=== PATIENT | female | born 1975 | race Caucasian/White ===

== ENCOUNTER 2022-02-14 09:18 | Outpatient (CLI) | payer OTHER, SELFPAY ==
--- NOTE | ~2022-02-14 | MM_ITS ---
EXAMINATION: MM scrn [place] implant BI w dany HISTORY: Screening mammogram TECHNIQUE: Craniocaudal and mediolateral oblique 3-D tomosynthesis images with implant displacement a nd synthetic 2-D images were generated. Craniocaudal and mediolateral oblique views of the breasts wi thout implant displacement were obtained using full field digital mammography. CAD analysis was submi tted and interpreted. COMPARISON: No prior mammogram is available for comparison at this institution. BREAST PARENCHYMAL COMPOSITION: The breasts are heterogeneously dense, which may obscure small masses . FINDINGS: Status post bilateral augmentation mammoplasty. Approximately 6.2 x 7.3 mm circumscribed mass is noted anteriorly in the outer mid left breast. Approximately 5 x 7.3 mm circumscribed mass is noted in the outer mid right breast. Additional masses may be obscured by the heterogeneously dense stroma. Bilateral diagnostic mammograp hy and bilateral breast ultrasound examination are recommended. IMPRESSION: 1. Bilateral breast masses 2. Bilateral diagnostic mammography and bilateral breast ultrasound examination are recommended BI-RADS Category 0: Incomplete: Needs additional imaging evaluation. Reviewed, dictated and finalized at location A.
== END 2022-02-14 09:19 | disposition home or self-care (01) ==
PROVIDERS: PCP Family Medicine; Visit Provider Family Medicine
DX: Z12.31 Encounter for screening mammogram for malignant neoplasm of breast (principal); R92.8 Other abnormal and inconclusive findings on diagnostic imaging of breast
CPT/HCPCS: 77063; 77067

== ENCOUNTER 2022-03-07 11:55 | Outpatient (CLI) | payer OTHER, SELFPAY ==
--- NOTE | ~2022-03-07 | MMUS_ITS ---
EXAMINATION: MM diag [place] implant BI w dany, US breast BI limited HISTORY: Bilateral breast masses on screening mammogram TECHNIQUE: Craniocaudal, mediolateral, and mediolateral oblique 3-D tomosynthesis images with implant displacement of the breasts were performed and synthetic 2-D images were generated. CAD analysis w as submitted and interpreted. High resolution limited bilateral breast ultrasound was performed. COMPARISON: 02/14/2022, 12/06/2020, 09/03/2019 FINDINGS: MAMMOGRAPHIC FINDINGS: Left breast: There are obscured low density masses in the upper outer quadrant of the breast, the lar gest of which measures 8 mm in the middle third of the breast at the 2:00 location 4 cm from the nipp le. With spot compression, this appears decreased in size when compared to prior examinations. Right breast: There is a questionable obscured 5 mm mass in the middle third of the slightly outer br east. No suspicious calcification or architectural distortion are identified. ULTRASOUND: Left breast: There are multiple cysts in the upper outer quadrant of the left breast, the largest of which measures 8 mm at the 2:00 location 4 cm from the nipple. Right breast: Cysts measuring 8 mm and 10 mm are present in the upper outer quadrant of the right rebel ast. IMPRESSION: 1. Bilateral breast cysts corresponding to the mammographic findings in question. No mammographic or sonographic evidence of malignancy. 2. Recommend routine screening mammography in one year. BI-RADS Category 2: Benign finding(s). Reviewed, dictated and finalized at location A. IMPRESSION: 1. Bilateral breast [facility] No mammographic or sonographic evidence of malignancy. 2. Recommend routine screening mammography in one year. BI-RADS Category 2: Benign finding(s). IMPRESSION: 1. Bilateral breast cysts corresponding to the mammographic findings in questio n. No mammographic or sonographic evidence of malignancy. 2. Recommend routine screening mammography in one year. BI-RADS Category 2: Benign finding(s).
== END 2022-03-07 11:56 | disposition home or self-care (01) ==
LOC: ANHIMG 11:56
PROVIDERS: PCP Family Medicine; Visit Provider Family Medicine
DX: R92.8 Other abnormal and inconclusive findings on diagnostic imaging of breast (principal)
CPT/HCPCS: 76642; 77062; 77066; G0279

== ENCOUNTER 2022-03-30 19:29 | Emergency (ER) | payer OTHER, SELFPAY ==
[2022-03-30 19:36] VITALS: BP 151/96; PULSE 91; RESP 18; TEMP 36.9; O2SAT 100
--- NOTE | 2022-03-30 19:58 | ED.EAR ---
HPI - Ear Problem General Chief complaint: Ear Stated complaint: ear pain History of Present Illness HPI Narrative: Patient is a 46 y/o CF who present to the [facility] via pov for an evaluation of left ear pain that has been present since yesterday. Initially, she reports a sore throat that started 3 days ago. Ear pain radiates to left jaw and left side of neck. Pain is constant and sharp. No relief with OTC meds. Related Data Home Medications Medication Instructions Recorded Confirmed bupropion HCl 100 mg tablet 100 mg PO DAILY 01/09/22 03/30/22 sertraline 100 mg tablet (Zoloft) 200 mg PO DAILY 01/09/22 03/30/22 Allergies Allergy/AdvReac Type Severity Reaction Status Date / Time No Known Allergies Allergy Verified 03/30/22 19:53 Review of Systems Review of Systems: Pertinent negatives fever, chills, sweats, change in appetite, poor p.o. intake, malaise, headache, rhinorrhea, sinus problems, tinnitus, vertigo, lightheadedness, hearing loss, muffled hearing, ear drainage, drooling, difficulty swallowing, voice changes, nausea, vomiting, cough, shortness of breath, lymphadenopathy, chest pain, heart palpitations, and heart murmur. 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 Agree to blood products: Yes Comments Reviewed Course Course Level of Care: Express Care Visit Vital Signs Vital signs: Vital Signs Temperature 98.4 F 03/30/22 19:36 Pulse Rate 91 03/30/22 19:36 Respiratory Rate 18 03/30/22 19:36 Blood Pressure 151/96 H 03/30/22 19:36 Pulse Oximetry 100 03/30/22 19:36 Oxygen Delivery Room Air 03/30/22 19:36 Temperature 98.4 F 03/30/22 19:36 Pulse Rate 91 03/30/22 19:36 Respiratory Rate 18 03/30/22 19:36 Blood Pressure 151/96 H 03/30/22 19:36 Pulse Oximetry 100 03/30/22 19:36 Oxygen Delivery Room Air 03/30/22 19:36 Medical Decision Making Differential Diagnosis Differential Diagnosis: Otitis externa, barotrauma, eustachian tube dysfunction, AOM, OME, herpes zoster infection, acute mastoiditis, malignancy Vital Signs Vital Signs: Vital Signs Temperature 98.4 F 03/30/22 19:36 Pulse Rate 91 03/30/22 19:36 Respiratory Rate 18 03/30/22 19:36 Blood Pressure 151/96 H 03/30/22 19:36 Pulse Oximetry 100 03/30/22 19:36 Oxygen Delivery Room Air 03/30/22 19:36 Temperature 98.4 F 03/30/22 19:36 Pulse Rate 91 03/30/22 19:36 Respiratory Rate 18 03/30/22 19:36 Blood Pressure 151/96 H 03/30/22 19:36 Pulse Oximetry 100 03/30/22 19:36 Oxygen Delivery Room Air 03/30/22 19:36 Due to an elevated blood pressure, I had a detailed discussion with the patient and/or guardian regarding the need for follow-up with their primary care provider within the next 3-4 days. Patient verbalized understanding and agreed. Critical Care Time Critical Care Time Critical Care Time: No Discharge Plan Discharge Clinical Impression: Otitis media, unspecified, left ear Patient Disposition: Home, Self-Care Condition: Stable Instructions: Antibiotic Form, Ear Infection (ED) Additional Instructions: See discharge instructions for detailed information. If you have been prescribed a medication to
[2022-03-30] MEDS: cefTRIAXone 500 MG, LIDOCAINE HCL 1% LOCAL INJ 1 ML IM (20:04)
== END 2022-03-30 20:12 | disposition home or self-care (01) ==
PROVIDERS: Emergency Provider Nurse Practitioner Family; PCP Family Medicine
DX: H66.92 Otitis media, unspecified, left ear (principal)
CPT/HCPCS: 96372; 99213; G0463; J0696

== ENCOUNTER 2022-04-10 18:07 | Emergency (ER) | payer OTHER, SELFPAY ==
[2022-04-10 18:15] VITALS: BP 137/99; PULSE 75; RESP 18; TEMP 36.4; O2SAT 100
--- NOTE | 2022-04-10 18:24 | ED.EAR ---
HPI - Ear Problem General Chief complaint: Ear Stated complaint: Lt Ear Irritation Time Seen by Provider: 04/10/22 18:24 History of Present Illness HPI Narrative: Tali Crump is a 46-year-old female with a PMH of depression and anxiety, who comes to [facility] with complaints of left ear pain after being treated here 11 days ago with amoxicillin 875 mg and steroids 50 mg a day; she states she still feels like she has water in the left ear and there is crackling on the left Related Data Home Medications Medication Instructions Recorded Confirmed bupropion HCl 100 mg tablet 100 mg PO DAILY 01/09/22 04/10/22 sertraline 100 mg tablet (Zoloft) 100 mg PO DAILY 01/09/22 04/10/22 Allergies Allergy/AdvReac Type Severity Reaction Status Date / Time No Known Allergies Allergy Verified 04/10/22 18:15 Review of Systems Review of Systems: CONSTITUTIONAL: Denies fever, chills, sweats. EYES: Denies visual changes, redness, discharge. ENT: Denies rhinorrhea, congestion, sore throat, left otalgia. CARDIOVASCULAR: Denies chest pain, palpitations, edema. RESPIRATORY: Denies dyspnea, wheezing, cough GASTROINTESTINAL: Denies abdominal pain, nausea, vomiting, diarrhea. GENITOURINARY: Denies dysuria, hematuria, abnormal discharge SKIN: Denies rash or itching. NEUROLOGIC: Denies numbness, or focal weakness. PSYCHIATRIC: Denies anxiety or depression. 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 There is no relevant family history pertinent to the presenting complaint. Exam Narrative: GENERAL: This is a well-nourished, well-developed patient, in mild distress. HEAD: normocephalic, atraumatic. EYES: Sclera clear/white. Vision is grossly intact. EARS: External ears normal, auditory canals mild erythema on right, erythema on leftwithout drainage, fluid behind TM on right. Hearing grossly intact. NOSE: External nose normal without nasal discharge, nares without redness, no rhinorrhea. THROAT: Mucous membranes moist, NECK: Neck supple, non-tender CARDIOVASCULAR: Regular rate and rhythm without murmurs, gallops, or rubs. RESPIRATORY: Clear to auscultation. Breath sounds equal bilaterally. No wheezes, rales, or rhonchi. GASTROINTESTINAL: Not done SKIN: warm, intact with no suspicious lesions or rash, good texture and turgor. NEURO: awake, alert, and oriented to person, place and time. There were no obvious focal neurologic abnormalities. Steady gait EXTREMITIES: Normal range of motion. BACK: Nontender without deformity Course Course Emergency Course: Comes with some residual left-sided ear pain-states it has improved since she was here and took amoxicillin and steroids but still has some feeling of fluid and crackling in left ear Started on polymyxin eardrops to the left side May use also on the right discussed how to place eardrops Patient is also take Zyrtec each morning Level of Care: Express Care Visit Vital Signs Vital signs: Vital Si
== END 2022-04-10 18:39 | disposition home or self-care (01) ==
PROVIDERS: Emergency Provider Nurse Practitioner; PCP Family Medicine
DX: H66.91 Otitis media, unspecified, right ear (principal); F41.9 Anxiety disorder, unspecified; F32.A Depression, unspecified; E78.5 Hyperlipidemia, unspecified
CPT/HCPCS: 99213; G0463

== ENCOUNTER 2022-04-16 13:17 | Outpatient (CLI) | payer OTHER, SELFPAY ==
[2022-04-16 14:06] LABS: Hematocrit 40.1 % (37.0-47.0); Hemoglobin 13.1 g/dL (12.0-15.0); Mean Corpuscular HGB Conc 32.7 g/dl (32-36); Mean Corpuscular Hemoglobin 28.3 pg (26-34); Mean Corpuscular Volume 86.6 fl (80-100); Mean Platelet Volume 9.3 fl (7.4-10.4); Platelet Count Result 252 k/mm3 (150-375); Red Blood Count 4.63 M/mm3 (4.2-5.4); Red Cell Distribution Width 13.5 % (11.5-14.5)
[2022-04-16 14:17] LABS: Alanine Aminotransferase 35 U/L (6-35); Albumin Level 4.4 g/dL (3.5-5.1); Alkaline Phosphatase 96 U/L (38-126); Anion Gap 9 mmol/L (8-16); Aspartate Amino Transferase 37 U/L (14-36); Bilirubin,Total 0.4 mg/dL (0.2-1.3); Blood Urea Nitrogen 24 mg/dL (7-17); Calcium 9.2 mg/dL (8.4-10.2); Carbon Dioxide 26 mmol/L (22-30); Chloride 101 mmol/L (98-107); Cholesterol 288 mg/dL (0-200); Estimated Glomerular Filt Rate > 60; Glucose 90 mg/dL (65-110); HDL Direct 49 mg/dL; Potassium 4.2 mmol/L (3.4-5.0); Sodium 136 mmol/L (137-145); Triglycerides 195 mg/dL (<150)
[2022-04-16 14:28] LABS: LDL Cholesterol Direct 210 mg/dL
[2022-04-16 16:08] LABS: Thyroid Stimulating Hormone Reflex 0.921 uIU/mL (0.465-4.68)
[2022-04-16 16:09] LABS: Hepatitis B Surface Antigen Negative (Negative)
[2022-04-16 16:17] LABS: HIV 1/2 Ab P24 Ag Result Negative (Negative)
[2022-04-16 16:27] LABS: Hepatitis C Virus Antibody Negative (Negative)
[2022-04-16 17:02] LABS: SPREG INTERNAL CONTROL Positive; Serum Qual hCG Negative
[2022-04-17 07:43] LABS: Rapid Plasma Reagin Non-Reactive (NonReactive)
[2022-04-21 16:05] LABS: FSH 69.4 mIU/mL (***); LH 41.6 mIU/mL (***); Progesterone 0.3 ng/mL (***); Prolactin 10.8 ng/mL (***)
[2022-04-24 21:58] LABS: Estradiol, Ultrasensitive 4 pg/mL
== END 2022-04-16 13:18 | disposition home or self-care (01) ==
PROVIDERS: PCP Family Medicine; Visit Provider Obstetrics & Gynecology
DX: E78.5 Hyperlipidemia, unspecified (principal); N92.6 Irregular menstruation, unspecified; E55.9 Vitamin D deficiency, unspecified; Z13.1 Encounter for screening for diabetes mellitus; Z20.2 Contact with and (suspected) exposure to infections with a predominantly sexual mode of transmission
CPT/HCPCS: 36415; 80053; 80061; 82306; 82670; 83001; 83002; 84144; 84146; 84443; 84703; 85027; 86592; 86703; 86803; 87340; G0432

== ENCOUNTER 2022-04-26 00:10 | Day surgery (SDC) | payer OTHER, SELFPAY ==
[2022-03-13 13:18] VITALS: BMI 26.6
[2022-04-22 15:58] VITALS: BMI 29.5
[2022-04-26 11:46] VITALS: BP 140/90; PULSE 71; RESP 18; TEMP 36.1; O2SAT 98
[2022-04-26] MEDS: LACTATED RINGERS 1,000 ML 150 ML IV CONT (11:52)
--- NOTE | 2022-04-26 12:31 | PM.HPGS ---
History of Present Illness History of Present Illness Consent: Risks, benefits, and alternatives have been discussed and questions answered. Patient agrees to proceed with procedure. Chief complaint: family hx of colon ca, neoplasm screening Narrative: Tali Crump is a 47 year old female with last colonoscopy 2017, father had colon cancer Review of Systems Constitutional: Constitutional: Denies headache(s) and Denies weakness Eyes: Eyes: Denies blurry vision ENT: Reports Normal hearing present, Denies headache(s) and Denies neck pain Cardiovascular: Cardiovascular: Denies chest pain and Denies dyspnea Respiratory: Respiratory: Denies dyspnea Gastrointestinal: Gastrointestinal: Reports no additional gastrointestinal complaints Genitourinary: Genitourinary: Denies dysuria Musculoskeletal: Musculoskeletal: Denies neck pain Integumentary/Breasts: Skin/Breast: Denies dry skin Neurologic: Reports Normal hearing present, Denies headache(s) and Denies weakness Psychiatric: Psychiatric: Denies anxiety Endocrine: Endocrine: Denies change in body appearance Hematologic/Lymphatic: Hematologic/Lymphatic: Denies easy bleeding Allergic/Immunologic: Allergic/Immunologic: Denies urticaria PMFSH Past Medical History Medical History Anxiety Depression Hyperlipidemia Surgical History Surgical History History of appendectomy History of bilateral breast implants History of dilatation and curettage Hx of colonoscopy 2017 Previous section Family History Family History Father Carcinoma of colon Diabetes mellitus Hypertension Mother Hypertension Other Depression Social History Social History Smoking status: Never smoker Alcohol intake: current Drinks per week: 3 Alcohol use details: wine Substance use: never Substance use type: does not use Living arrangements: with family 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 Agree to blood products: Yes Meds Home Medications and Allergies Home Medications Medication Instructions Recorded Confirmed Type bupropion HCl 100 mg tablet 100 mg PO DAILY 01/09/22 04/22/22 History sertraline 100 mg tablet (Zoloft) 100 mg PO DAILY 01/09/22 04/22/22 History amoxicillin 875 mg-potassium 1 tablet PO Q12H #30 tabs 04/19/22 04/22/22 Rx clavulanate 125 mg tablet fluconazole 150 mg tablet 150 mg PO ONCE #2 tabs 04/19/22 04/22/22 Rx (Diflucan) fluticasone propionate 50 2 spray intranasal DAILY 04/19/22 04/22/22 History mcg/actuation nasal spray,suspension Allergies Allergy/AdvReac Type Severity Reaction Status Date / Time No Known Allergies Allergy Verified 04/26/22 11:44 Vital Signs Vital Signs - 24 hr 04/26/22 11:46 Temperature 97.0 F L Pulse Rate 71 Respiratory Rate 18 Blood Pressure 140/90 Pulse Oximetry 98 Oxygen Delivery Room Air Exam Const: General: comfortable and no acute distress HENMT: General nose exam: Normal nares present Eyes: General: appearance normal, both eyes and all related structures Neck: Neck: no JVD Resp: Auscultation: clear to auscultation bilaterally Cardio: Rate: regular rate Rhythm: regular rhythm GI: Inspection: non-distended GI Palp: Yes Soft to palpation Skin: General skin exam: normal color Neuro: General: gait normal Speech: normal speech Extrem: General: normal to inspection Psych: Mental Status: mental status grossly normal Assessment and Plan Assessment and plan (1) Family history of colon cancer: Code(s): Z80.0 - Family history of malignant neoplasm of digestive organs Status: Acute Assessment and Plan: colonoscopy
[2022-04-26 12:55] VITALS: BP 113/71; PULSE 68; RESP 18; O2SAT 98
[2022-04-26 13:05] VITALS: BP 102/68; PULSE 66; RESP 15; O2SAT 98
[2022-04-26 13:15] VITALS: BP 118/84; PULSE 70; RESP 16; O2SAT 98
== END 2022-04-26 13:28 | disposition home or self-care (01) ==
PROVIDERS: PCP Family Medicine; Visit Provider Internal Medicine Gastroenterology
PROC: 0DJD8ZZ Inspection of Lower Intestinal Tract, Via Natural or Artificial Opening Endoscopic (ICD-10-PCS; CPT 45378; principal; 2022-04-26 13:00)
DX: Z12.11 Encounter for screening for malignant neoplasm of colon (principal); Z80.0 Family history of malignant neoplasm of digestive organs; K64.8 Other hemorrhoids; F41.9 Anxiety disorder, unspecified; F32.A Depression, unspecified; E78.5 Hyperlipidemia, unspecified
CPT/HCPCS: 45378; J2704; J7120

== ENCOUNTER 2024-06-28 17:49 | Emergency (ER) | payer OTHER, SELFPAY ==
[2024-06-28 18:00] VITALS: BP 129/83; PULSE 81; RESP 18; TEMP 36.6; O2SAT 99
--- NOTE | 2024-06-28 18:11 | ED_ITS ---
HPI - URI/Sore Throat General Chief Complaint: Upper Respiratory Infection Stated Complaint: respiratory issues Time Seen by Provider: 06/28/24 18:11 Source: patient Mode of arrival: ambulatory Limitations: no limitations History of Present Illness HPI Narrative: 49-year-old female presents with complaint of chest congestion, coughing, shortness of breath with exertion. Symptoms for over a week. Reports started with sinus congestion and pressure. Taking [id number] medications to treat symptoms. Afebrile. Patient states she has been off and on sick for the past 2 months. Had walking pneumonia 2 months ago and treated with antibiotic. Denies nausea vomiting diarrhea. All systems reviewed and negative except as noted above. Related Data Home Medications Medication Instructions Recorded Confirmed Testosterone Cream 1 g topical DIRECTED 06/28/24 06/28/24 amlodipine 5 mg tablet 5 mg DAILY 06/28/24 06/28/24 bupropion HCl 300 mg 24 hr tablet, 300 mg PO DIRECTED 06/28/24 06/28/24 extended release citalopram 40 mg tablet 40 mg DIRECTED 06/28/24 06/28/24 estradiol 1 mg tablet 1 mg DIRECTED 06/28/24 06/28/24 progesterone micronized 200 mg 200 mg DIRECTED 06/28/24 06/28/24 capsule Allergies Allergy/AdvReac Type Severity Reaction Status Date / Time No Known Allergies Allergy Verified 06/28/24 18:04 Review of Systems Review of Systems: CONSTITUTIONAL: Denies fever, chills, or sweats. EYES: Denies visual changes, redness, or discharge. ENT: reports rhinorrhea, congestion, sore throat. Denies otalgia. CARDIOVASCULAR: Denies chest pain, palpitations, or edema. RESPIRATORY: Reports cough and dyspnea with exertion. GASTROINTESTINAL: Denies abdominal pain, nausea, vomiting, or diarrhea. GENITOURINARY: Denies dysuria or hematuria. SKIN: Denies rash or itching. MUSCULOSKELETAL: Denies back pain, joint pain, or myalgia. NEUROLOGIC: Denies headache, numbness, or weakness. PSYCHIATRIC: Denies anxiety or depression. All other systems reviewed are negative, except as documented in HPI. [facility] Past Medical History Medical History Anxiety Depression Hyperlipidemia Surgical History Surgical History History of appendectomy History of bilateral breast implants History of dilatation and curettage Hx of colonoscopy 2017 Previous section Family History Family History Father Carcinoma of colon Diabetes mellitus Hypertension Mother Hypertension Other Depression Social History Social History Smoking status: Never smoker Alcohol intake: current Drinks per week: 3 Alcohol use details: wine Substance use: never Substance use type: does not use Lack of Transportation: No Lack of Food: Never True Current Housing: I Have Housing Concerned About Future Housing: No Difficulty Paying Gas/Electric Bills: No Difficulty Paying for Meds: No Currently Unemployed: No Education: Associate Degree Difficulty w/ Childcare or Family Care: No Living arrangements: with family Occupation/Education: occupation 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 There is no relevant family history pertinent to the presenting complaint. Exam Narrative: GENERAL: This is a well-nourished, well-developed patient, patient ill- appearing but no acute distress HEAD: normocephalic, atraumatic. EYES: PERRL. Sclera clear/white. Vision is grossly intact. EARS: External ears normal, auditory canals clear and without drainage, TMs normal without perforation. Hearing grossly intact. NOSE: External nose normal with clear nasal drainage, mild erythema to nares THROAT: Mucous membranes moist, posterior pharynx clear. NECK: Neck supple, non-tender without lymphadenopathy, masses or thyromegaly. CARDIOVASCULAR: Regular rate and rhythm without murmurs, gallops, or rubs. RESPIRATORY: decreased to bilateral lower lung ly otherwise clear. Breath s ounds equal bilaterally. No wheezes, rales, or rhonchi. SKIN: warm, Dry, intact with no suspicious lesions or rash, good texture and turgor. NEURO: awake, alert, and oriented to person, place and time. There were no obvious focal neurologic abnormalities. EXTREMITIES: No joint tenderness, effusion, or edema noted. Course Course Level of Care: Express Care Visit Vital Signs Vital signs: Vital Signs Temperature 36.6 C 06/28/24 18:00 Pulse Rate 81 06/28/24 18:00 Respiratory Rate 18 06/28/24 18:00 Blood Pressure 129/83 06/28/24 18:00 Pulse Oximetry 99 06/28/24 18:00 Oxygen Delivery Room Air 06/28/24 18:00 Temperature 36.6 C 06/28/24 18:00 Pulse Rate 81 06/28/24 18:00 Respiratory Rate 18 06/28/24 18:00 Blood Pressure 129/83 06/28/24 18:00 Pulse Oximetry 99 06/28/24 18:00 Oxygen Delivery Room Air 06/28/24 18:00 reviewed MDM - URI/Sore Throat MDM Narrative Medical decision making narrative: Patient is aware of diagnosis, understands and agrees to treatment plan. Anticipatory guidance given. Patient agrees to follow-up as directed and is aware of reasons to seek care at the emergency department. Portions of this record may have been created with voice recognition software will treat patient with antibiotic due to duration of symptoms and exam findings. Patient agrees with plan of care. Patient is nontoxic. Vital signs stable. Differential Diagnosis Differential diagnosis: Likely upper respiratory infection, sinusitis, viral infection and bronchitis Discharge Plan Discharge Clinical Impression: Upper respiratory infection with cough and congestion Patient Disposition: Home, Self-Care Condition: Stable Instructions: Antibiotic Form, Upper Respiratory Infection (DC) Additional Instructions: take medications as prescribed. Do not drive while taking prescription cough medication, this medication may make you drowsy. Take ibuprofen or Tylenol every 6-8 hours as needed for pain. Drink at least 64 oz of water a day. Follow-up with your doctor if symptoms are not improving. Prescriptions: New doxycycline hyclate 100 mg capsule 100 mg PO BID 7 Days Qty: 14 0RF prednisone 20 mg tablet 40 mg PO DAILY 5 Days Qty: 10 0RF codeine-guaifenesin [Virtussin AC] 10-100 mg/5 mL liquid 5 ml PO Q6H PRN (Reason: cough) Qty: 120 0RF No Action citalopram 40 mg tablet 40 mg DIRECTED bupropion HCl 300 mg tablet extended release 24 hr 300 mg PO DIRECTED estradiol 1 mg tablet 1 mg DIRECTED progesterone micronized 200 mg capsule 200 mg DIRECTED amlodipine 5 mg tablet 5 mg DAILY Rx Instructions: TAKE 1 TABLET BY MOUTH DAILY Testosterone Cream 1 g topical DIRECTED Follow-up/Referrals: Maribeth,Shabana Cavazos APRN [Primary Care Provider] - Stand Alone Forms: Work/School Release IP Time of Disposition: 18:21
== END 2024-06-28 18:25 | disposition home or self-care (01) ==
PROVIDERS: Emergency Provider Nurse Practitioner Family; PCP Registered Nurse
DX: J06.9 Acute upper respiratory infection, unspecified (principal); E78.5 Hyperlipidemia, unspecified; F41.9 Anxiety disorder, unspecified; F32.A Depression, unspecified
CPT/HCPCS: 99213; G0463